=== PATIENT | female | born 1965 | race Caucasian/White ===

== ENCOUNTER 2023-03-16 16:46 | Emergency (ER) | payer BC ==
[~2023-03-16 16:46] MED LIST: Iopamidol 300 61% 100 ML VIAL FS ONE
[2023-03-16 17:45] LABS: Bilirubin Neg (Negative); Blood, Urine 25 (Negative); Clarity Slightly Cloudy (Clear); Glucose, Urine (Dipstick) Normal (Negative); Ketone, Urine Negative (Negative); Leukocyte 25 (Negative); Nitrite Negative (Negative); Protein, Urine (Dipstick) 15 mg/dl (Neg-Trace); Urobilinogen Normal mg/dL (Less than 2); pH, Urine 6.5 (5.0-9.0)
[2023-03-16 17:47] LABS: #Basophils 0.1 10x3/uL (0.0-0.2); #Eosinphils 0.3 10x3/uL (0.0-0.5); #Monocytes 1.2 10x3/uL (0.0-1.1); #Neutrophils 8.7 10x3/uL (1.5-8.4); %Basophils 0.7 % (0.0-2.0); %Lymphocytes 17.8 % (18.0-47.0); %Monocytes 9.9 % (0.0-10.0); %Neutrophils 69.2 % (40.0-75.0); Hematocrit 40.7 % (34.9-44.5); Hemoglobin 14.4 g/dL (12.0-15.5); Mean Corpuscular HGB CONC 35.4 g/dL (32.0-36.0); Mean Corpuscular Hemoglobin 32.6 pg (27.0-33.0); Mean Corpuscular Volume 92.1 fl (81.6-98.3); Platelet Count 406 10x3/uL (150-450); RBC Distribution Width 11.4 % (11.5-14.5); Red Blood Cell (RBC) Count 4.42 10x6/uL (3.90-5.03); White Blood Cell (WBC) Count 12.6 10x3/uL (3.5-10.5)
[2023-03-16] MEDS ORDERED: Morphine 4 MG/ML VIAL ONE (17:47)
[2023-03-16 18:00] LABS: CAUTI Indications for Culture Pelvic or flank pain; RBC/HPF 0-3 HPF (0-3); Squamous Epithelial 0-3 HPF (0-3); WBC/HPF 0-3 HPF (0-3)
[2023-03-16 18:01] LABS: Bacteria/HPF 2+ HPF (None Seen); Urine Culture Reflex No No
[2023-03-16 18:04] LABS: ALT (SGPT) 190 U/L (8-55); AST (SGOT) 98 U/L (5-34); Albumin 4.6 g/dL (3.5-5.0); Alkaline Phosphatase 154 U/L (40-110); Anion Gap 18 mmol/L (10-20); BUN (Urea Nitrogen) 12 mg/dL (9.8-20.1); Bilirubin, Total 1.4 mg/dL (0.2-1.2); Calc. Creatinine Clearance 0 mL/min (70-130); Calcium 10.3 mg/dL (7.8-10.44); Carbon Dioxide 25 mmol/L (22-29); Chloride 98 mmol/L (98-107); Estimated GFR 53; Globulin 3.9 g/dL (2.4-3.5); Glucose 101 mg/dL (70-105); Lipase 46 U/L (8-78); Potassium 3.1 mmol/L (3.5-5.1); Protein, Total 8.5 g/dL (6.0-8.3); Sodium 138 mmol/L (136-145)
== END 2023-03-16 19:40 | disposition home or self-care (01) ==
LOC: CSHERS 16:46
DX: K57.32 Diverticulitis of large intestine without perforation or abscess without bleeding (principal); I10 Essential (primary) hypertension
CPT/HCPCS: 74177; 80053; 81001; 83690; 85025; 96374; J2270; Q9967